=== PATIENT | male | born 1995 | race Two or more races ===

== ENCOUNTER 2018-10-28 23:22 | Emergency (ER) | payer MEDICAID ==
[~2018-10-28] VITALS: Ht 167.6 cm; Wt 72.6 kg
[2018-10-28 23:39] VITALS: BP 119/70
[2018-10-29] MEDS ORDERED: cefTRIAXone SOD 1,000 MG VL ONE (00:54)
[2018-10-29] MEDS ORDERED: cefTRIAXone W LIDOCAINE 1 GM IM IM ONE (01:00)
[2018-10-29] MEDS ORDERED: TETANUS-DIPTH-ACEL PERTUSSIS 0.5ML SYRG IM ONE (01:00)
[2018-10-29] MEDS ORDERED: LIDOCAINE 2% (LOCAL ANESTH.) PF 5ml SDV ONE (01:01)
[2018-10-29] MEDS ORDERED: AMMONIA 0.33 ML INHALANT IN ONE (01:54)
== END 2018-10-29 01:58 | disposition home or self-care (01) ==
LOC: ER 23:27
DX: S46.812A Strain of other muscles, fascia and tendons at shoulder and upper arm level, left arm, initial encounter (principal); S60.551A Superficial foreign body of right hand, initial encounter; W25.XXXA Contact with sharp glass, initial encounter; Y93.89 Activity, other specified; Y92.488 Other paved roadways as the place of occurrence of the external cause; Y99.8 Other external cause status; Y92.89 Other specified places as the place of occurrence of the external cause
CPT/HCPCS: 10120; 73080; 73100; 90471; 90715; 96372; 99284; J0696; J2001